=== PATIENT | female | born 1940 | race Caucasian/White ===

== ENCOUNTER 2016-11-17 08:09 | Emergency (ER) | payer OTHER ==
[2016-11-17] MEDS ORDERED: NS 500 ML IV ONE (08:47)
[2016-11-17] MEDS ORDERED: ACETAMINOPHEN 325 MG TAB ONE (08:50)
--- NOTE | 2016-11-17 09:19 | UCPHY ---
H & P Time Seen by Provider: 11/17/16 08:45 Patient Type: Established HPI/ROS: HPI Cough, congestion. 76-year-old female by private vehicle. This patient reports that she has had a cough which she describes as nonproductive and dry as well as nasal congestion productive of clear rhinorrhea for the last 2 weeks, feeling weak and tired today with continued cough and congestion. She had 2 episodes of post-tussive vomiting yesterday. Otherwise no nausea. No diarrhea. She has been running a fever. ROS: Constitutional: As above. Eyes: No discharge. No changes in vision. ENT: No sore throat. As above. Respiratory: As above. No shortness of breath. Cardiac: No chest pain, no palpitations. Gastrointestinal: No abdominal pain, as above, no diarrhea. Genitourinary: No hematuria. No dysuria or increased frequency with urination. Musculoskeletal: No back pain. No neck pain. No myalgias or arthralgias. Skin: No rashes. Neurological: No headache. No focal weakness or altered sensation. Past medical history: Past medical history includes hypertension. Also has home oxygen which she has been using for years for hypoxia. Primary care physician is Dr. Fabian. Social history: She lives with a roommate. Nonsmoker. Physical Exam: General Appearance: Alert, no distress. This patient is responding to questions appropriately and in full sentences. This patient appears well- hydrated and well-nourished. Eyes: Pupils equal and round no pallor or injection. No lid edema, erythema or injection. ENT, Mouth: Mucous membranes are moist. The pharyngeal tissues are unremarkable. No edema or swelling. No asymmetry suggestive of abscess. No erythema or exudates. No stridor on auscultation of her neck. Respiratory: There are no retractions, lungs are clear to auscultation anteriorly with good air movement bilaterally. Cardiovascular: Regular rate and rhythm. No murmur. Gastrointestinal: Abdomen is soft and nontender, no masses, bowel sounds normal. No focal tenderness at McBurney's point. No Jones sign. Neurological: Motor sensory function is grossly intact. Cranial nerves are normal. Gait is normal. Skin: Warm and dry, no rashes. Musculoskeletal: Neck is supple and nontender. Extremities are symmetrical. All joints range without pain or impingement. Psychiatric: No agitation. No depression. Database: Rapid influenza: Positive. EKG: Imaging: Chest x-ray PA and lateral; the cardiac mediastinal silhouette is unremarkable. No evidence of infiltrate or pneumothorax. Bronchitis, diffuse airway disease. No acute cardiopulmonary disease process noted. Interpreted by me. Procedures: Emergency department course: IV placed. She was placed on a teletypesetter monitor. EKG performed. She was given 1 g of oral Tylenol. She was started on IV normal saline with 500 cc to be given over the next 1-2 hours. She meets SIRS criteria based on fever and pulse of 92. Blood cultures, serum lactate and other appropriate blood work sent. 10:00 a.m., patient given oral Tamiflu for treatment of influenza. 10:40 a.m., patient sitting upright on the bed. Talking to her friend and roommate. Pulse oximetry on room air is 90 present. Vital signs reviewed and are otherwise unremarkable. She has oxygen at home and is comfortable using this. She feels comfortable going home and I feel she is safe for discharge with her friend. I do not feel she is septic based on repeat clinical evaluation as well as results of blood work. Return to emergency department precautions and follow-up were discussed in detail with her. She lives near the hospital and can easily return if needed. She will be prescribed Tamiflu as well as Vicodin for treatment of fever, myalgias and arthralgias. All of her questions were answered. She was discharged in good condition with her friend. Differential Diagnosis: The differential diagnosis on this patient includes but is not limited to influenza, bronchitis, pneumonia. This represents a partial list of diagnoses considered. These considerations are based on history, physical exam, past history, reassessment and diagnostic testing. Smoking Status: Never smoked Constitutional: Initial Vital Signs Temperature (C) 38.8 C H 11/17/16 08:29 Heart Rate 92 11/17/16 08:29 Respiratory Rate 20 11/17/16 08:29 Blood Pressure 157/80 H 11/17/16 08:29 O2 Sat (%) 88 L 11/17/16 08:29 O2 Delivery Mode Room Air O2 (L/minute) 3 Allergies/Adverse Reactions: amlodipine besylate [From Norvasc] Allergy (Severe, Verified 11/17/16 08:36) LOW HEART RATE latex [Latex] Allergy (Severe, Verified 11/17/16 08:36) SEVERE RASH adhesive tape [Adhesive Tape] Allergy (Intermediate, Verified 11/17/16 08:36) RASH/BLISTERS Sulfa (Sulfonamide Antibiotics) Allergy (Mild, Verified 11/17/16 08:36) Vomiting Home Medications: Medication Instructions Recorded Lisinopril [Zestril 40 mg (*)] 40 mg PO DAILY #30 tab 10/16/14 Coq10 11/17/16 Hydrochlorothiazide 11/17/16 Hydrocodone/APAP 5/325 [[place] 1 - 2 tab PO Q4-6PRN PRN #10 tab 11/17/16 5/325 (*)] Oseltamivir Phosphate [Tamiflu 75 75 mg PO BID #10 cap 11/17/16 mg (RX)] Medical Decision Making - Data Points Laboratory Results: Laboratory Results 11/17/16 09:08 11/17/16 09:08 11/17/16 09:08 WBC 9.34 10^3/uL (3.80-9.50) RBC 4.69 10^6/uL (4.18-5.33) Hgb 15.4 g/dL (12.6-16.3) Hct 45.2 % (38.0-47.0) MCV 96.4 fL (81.5-99.8) MCH 32.8 pg (27.9-34.1) MCHC 34.1 g/dL (32.4-36.7) RDW 13.3 % (11.5-15.2) Plt Count 272 10^3/uL (150-400) MPV 11.6 fL (8.7-11.7) Neut % (Auto) 82.4 H % (39.3-74.2) Lymph % (Auto) 9.3 L % (15.0-45.0) [place] % (Auto) 7.3 % (4.5-13.0) Eos % (Auto) 0.1 L % (0.6-7.6) Baso % (Auto) 0.6 % (0.3-1.7) Nucleat RBC Rel Count 0.0 % (0.0-0.2) Absolute Neuts (auto) 7.69 H 10^3/uL (1.70-6.50) Absolute Lymphs (auto) 0.87 L 10^3/uL (1.00-3.00) Absolute Monos (auto) 0.68 10^3/uL (0.30-0.80) Absolute Eos (auto) 0.01 L 10^3/uL (0.03-0.40) Absolute Basos (auto) 0.06 10^3/uL (0.02-0.10) Absolute Nucleated RBC 0.00 10^3/uL (0-0.01) Immature Gran % 0.3 % (0.0-1.1) Immature Gran # 0.03 10^3/uL (0.00-0.10) VBG Lactic Acid 1.3 mmol/L (0.7-2.1) Sodium 141 mEq/L (134-144) Potassium 3.6 mEq/L (3.5-5.2) Chloride 100 mEq/L (97-110) Carbon Dioxide 28 mEq/l (22-31) Anion Gap 13 mEq/L (8-16) BUN 18 mg/dL (7-23) Creatinine 0.9 mg/dL (0.6-1.0) Estimated GFR > 60 Glucose 106 H mg/dL (70-100) Calcium 9.0 mg/dL (8.5-10.4) Influenza Typ A,B (DFA) POSITIVE FOR FLU A H (NEGATIVE) Medications Given: Discontinued Medications Sodium Chloride (Ns) 500 mls @ 0 mls/hr IV ONCE ONE PRN Reason: Wide Open Stop: 11/17/16 08:48 Last Admin: 11/17/16 09:30 Dose: 500 mls Oseltamivir Phosphate (Tamiflu) 75 mg PO EDNOW ONE Stop: 11/17/16 09:56 Last Admin: 11/17/16 10:30 Dose: 75 mg Departure - Departure Disposition: Home, Routine, Self-Care Clinical Impression: Fever, Bronchitis, Influenza A Condition: Good Instructions: Influenza (ED) Additional Instructions: Read and follow provided instructions. Follow-up with your primary care physician tomorrow as discussed for re- evaluation. Return to the emergency department or urgent care for worsening symptoms, worsening cough, high fever, difficulty breathing or other serious concerns. Take medication as prescribed. [place]/Percocet dosin every 4-[address] for [address] Do not drive on this medication. Do not take Tylenol with this medication. Ibuprofen dosin mg every 6 hours with meals for the next 3 days only. Use home oxygen at 2-3 L , 24-7 by nasal cannula until symptoms resolve. Referrals: Martín Fabian [Primary Care Provider] - As per Instructions Prescriptions: Hydrocodone/APAP 5/325 [[place] 5/325 (*)] 1 - 2 tab PO Q4-6PRN PRN #10 tab PRN Reason: Pain, Moderate Oseltamivir Phosphate [Tamiflu 75 mg (RX)] 75 mg PO BID #10 cap - PQRS PQRS Measurement: 134: Depression screening and followup, PRIME MD-PHQ2 (12 years and older) Over the last 2 weeks, how often have you been bothered by any of the following problems? 1. Feeling down, depressed, or hopeless? 2. Little interest or pleasure in doing things? Answered no to both questions. 130: Documentation of medications. Reviewed all patient medications, doses, route and frequency. 226: Do you smoke? No. 47: 65 and older: Advanced care planning. Patient designates surrogate decision maker as family. 51: 18 years old and older with diagnosis of COPD, spirometry performance. NA 52: 18 years old and older with COPD and symptoms of COPD or FEV1<60% predicted prescribed a B Agonist. NA
[2016-11-17 09:24] LABS: % IMMATURE GRANULYOCYTES 0.3 % (0.0-1.1); ABSOLUTE IMMATURE GRANULOCYTES 0.03 10^3/uL (0.00-0.10); ADD DIFF? NO; ADD MORPH? NO; ADD SCAN? NO; ATYPICAL LYMPHOCYTE FLAG 0 (0-99); FRAGMENT RBC FLAG 0 (0-99); HEMATOCRIT 45.2 % (38.0-47.0); HEMOGLOBIN 15.4 g/dL (12.6-16.3); LEFT SHIFT FLG 0 (0-99); LIPEMIA HEMOLYSIS FLAG 90 (0-99); MEAN CELL HEMOGLOBIN 32.8 pg (27.9-34.1); MEAN CELL HEMOGLOBIN CONCENTR. 34.1 g/dL (32.4-36.7); MEAN CELL VOLUME 96.4 fL (81.5-99.8); MEAN PLATELET VOLUME 11.6 fL (8.7-11.7); PLATELET CLUMPS FLAG 0 (0-99); PLATELET COUNT 272 10^3/uL (150-400); RED BLOOD CELL COUNT 4.69 10^6/uL (4.18-5.33); RED CELL DISTRIBUTION WIDTH 13.3 % (11.5-15.2)
[2016-11-17 09:30] LABS: ANION GAP 13 mEq/L (8-16); CARBON DIOXIDE 28 mEq/l (22-31); CHLORIDE 100 mEq/L (97-110); CREATININE 0.9 mg/dL (0.6-1.0); GLOMERULAR FILTRATION RATE > 60; GLUCOSE 106 mg/dL (70-100); POTASSIUM 3.6 mEq/L (3.5-5.2); SODIUM 141 mEq/L (134-144)
[2016-11-17] MEDS ORDERED: OSELTAMIVIR PHOSPHATE 75 MG CAP PO ONE (09:55)
--- NOTE | 2016-11-17 10:01 | DX ---
Chest, PA and Lateral November 17, 2016 History: Dyspnea. Cough. Comparison: September 2014. Findings: Heart size is upper limits of normal and stable. Aorta is tortuous. There is mild peribronc hial wall thickening bilaterally. Mild emphysematous configuration to the chest. Mild degenerative ch horacio is seen in the thoracic spine and evidence of prior lumbar surgery. Impression: Mild bronchitis. Other chronic findings, as above.
[2016-11-17 10:30] VITALS: TEMP 100.4
[2016-11-17 11:16] VITALS: BP 146/90; PULSE 75; RESP 22; O2SAT 88
== END 2016-11-17 10:50 | disposition home or self-care (01) ==
LOC: CED 08:09
DX: J09.X2 Influenza due to identified novel influenza A virus with other respiratory manifestations (principal)
CPT/HCPCS: 71020; G0463; 80048-PO; 83605-PO; 85025-PO; 87400-PO; 93010-PO; 99215-PO

== ENCOUNTER 2016-11-19 13:06 | Inpatient (IN) | payer OTHER ==
[2016-11-19] MEDS ORDERED: NS 1,000 ML IV ONE (13:42)
[2016-11-19 13:51] LABS: % IMMATURE GRANULYOCYTES 0.2 % (0.0-1.1); ABSOLUTE IMMATURE GRANULOCYTES 0.02 10^3/uL (0.00-0.10); ADD DIFF? NO; ADD MORPH? NO; ADD SCAN? NO; ATYPICAL LYMPHOCYTE FLAG 30 (0-99); FRAGMENT RBC FLAG 0 (0-99); HEMATOCRIT 46.9 % (38.0-47.0); HEMOGLOBIN 15.8 g/dL (12.6-16.3); LEFT SHIFT FLG 0 (0-99); LIPEMIA HEMOLYSIS FLAG 80 (0-99); MEAN CELL HEMOGLOBIN 32.4 pg (27.9-34.1); MEAN CELL HEMOGLOBIN CONCENTR. 33.7 g/dL (32.4-36.7); MEAN CELL VOLUME 96.3 fL (81.5-99.8); MEAN PLATELET VOLUME 11.4 fL (8.7-11.7); PLATELET CLUMPS FLAG 0 (0-99); PLATELET COUNT 230 10^3/uL (150-400); RED BLOOD CELL COUNT 4.87 10^6/uL (4.18-5.33); RED CELL DISTRIBUTION WIDTH 13.3 % (11.5-15.2)
--- NOTE | 2016-11-19 13:57 | EDPHY ---
H & P Time Seen by Provider: 11/19/16 13:18 HPI/ROS: Chief complaint. Cough, fever HPI. 76-year-old female with 2 weeks of upper respiratory symptoms. She was diagnosed on November 17 with influenza with a positive rapid flu swab. She was begun on Tamiflu and now has had 3 days of Tamiflu. Despite this she has continued to run a fever, have nonproductive cough, generalized weakness and shortness of breath. Exposure to sick roommate. No chest discomfort but had some upper abdominal pain with coughing. No unusual leg pain or swelling. She has coughed to the point of vomiting. She also has coughed to the point of diarrhea. She is unable to take care of herself at home ROS Constitutional. Fever and weakness Eyes. no problems with vision ENT. no sore throat, no nasal drainage Cardiovascular. no chest pain Respiratory. Cough and shortness of breath Abdominal. Upper abdominal pain with . no problems urinating MS. no calf pain/swelling, no neck/back pain, no joint pain Skin. no rash Lymph. no swollen glands Neuro. 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 She is also unsure whether she has had pneumococcal vaccine. Hypertension, appendectomy, tonsillectomy, spinal fusion, hysterectomy, breast cancer, C difficile, cholecystectomy Social History: Single, nonsmoker, no alcohol Smoking Status: Never smoked Physical Exam: General Appearance: Alert pleasant well-developed female moderate distress vital signs show temp 38degrees point. Blood pressure 143/97. Pulse ox on room air 91% Eyes: Pupils equal and round no pallor or injection. ENT, Mouth: Mucous membranes are moist. Respiratory: No retractions but rales in the left lower lung base Cardiovascular: Regular rate and rhythm. Gastrointestinal: Abdomen is soft and nontender, no masses, bowel sounds normal. Neurological: Awake and alert, sensory and motor exams grossly normal. Skin: Warm and dry, no rashes. Musculoskeletal: Neck is supple nontender. Extremities symmetrical, full range of motion. Psychiatric: Patient is oriented X 3, there is no agitation. Constitutional: Initial Vital Signs Temperature (C) 38.1 C 11/19/16 13:14 Heart Rate 79 11/19/16 13:14 Respiratory Rate 18 11/19/16 13:14 Blood Pressure 143/97 H 11/19/16 13:14 O2 Sat (%) 91 L 11/19/16 13:14 O2 Delivery Mode Nasal Cannula O2 (L/minute) 2 Allergies/Adverse Reactions: amlodipine besylate [From Norvasc] Allergy (Severe, Verified 11/19/16 13:13) LOW HEART RATE latex [Latex] Allergy (Severe, Verified 11/19/16 13:13) SEVERE RASH adhesive tape [Adhesive Tape] Allergy (Intermediate, Verified 11/19/16 13:13) RASH/BLISTERS Sulfa (Sulfonamide Antibiotics) Allergy (Mild, Verified 11/19/16 13:13) Vomiting Home Medications: Medication Instructions Recorded Lisinopril [Zestril 40 mg (*)] 40 mg PO DAILY #30 tab 10/16/14 Coq10 11/17/16 Hydrochlorothiazide 11/17/16 Hydrocodone/APAP 5/325 [[place] 1 - 2 tab PO Q4-6PRN PRN #10 tab 11/17/16 5/325 (*)] Oseltamivir Phosphate [Tamiflu 75 75 mg PO BID #10 cap 11/17/16 mg (RX)] Medical Decision Making - Diagnostics Imaging: Chest x-ray interpreted by me is consistent with bronchitis. No evidence for pneumonia Procedures: IV normal saline. Blood cultures, lactate. Septic workup ED Course/Re-evaluation: Re-evaluation 14 40 patient is stable. The patient and I discussed lab and imaging study results. We discussed treatment plan including need for admission. The patient expresses understanding and agreement I consulted and discussed the case with Dr. Gamble, hospitalist, who agrees to the admission Differential Diagnosis: The patient has the flu. She is not doing well despite being on Tamiflu. I considered pneumonia which we do not see a finding on her chest x-ray. She lives by herself and is having a hard time taking care of herself. Plan is admission - Data Points Laboratory Results: Laboratory Results 11/19/16 13:26 11/19/16 13:26 11/19/16 11/19/16 13:50 13:26 WBC 9.92 H 10^3/uL (3.80-9.50) RBC 4.87 10^6/uL (4.18-5.33) Hgb 15.8 g/dL (12.6-16.3) Hct 46.9 % (38.0-47.0) MCV 96.3 fL (81.5-99.8) MCH 32.4 pg (27.9-34.1) MCHC 33.7 g/dL (32.4-36.7) RDW 13.3 % (11.5-15.2) Plt Count 230 10^3/uL (150-400) MPV 11.4 fL (8.7-11.7) Neut % (Auto) 67.9 % (39.3-74.2) Lymph % (Auto) 23.2 % (15.0-45.0) [place] % (Auto) 8.2 % (4.5-13.0) Eos % (Auto) 0.1 L % (0.6-7.6) Baso % (Auto) 0.4 % (0.3-1.7) Nucleat RBC Rel Count 0.0 % (0.0-0.2) Absolute Neuts (auto) 6.74 H 10^3/uL (1.70-6.50) Absolute Lymphs (auto) 2.30 10^3/uL (1.00-3.00) Absolute Monos (auto) 0.81 H 10^3/uL (0.30-0.80) Absolute Eos (auto) 0.01 L 10^3/uL (0.03-0.40) Absolute Basos (auto) 0.04 10^3/uL (0.02-0.10) Absolute Nucleated RBC 0.00 10^3/uL (0-0.01) Immature Gran % 0.2 % (0.0-1.1) Immature Gran # 0.02 10^3/uL (0.00-0.10) PT 12.7 SEC (12.0-15.0) INR 0.96 (0.83-1.16) APTT 28.1 SEC (23.0-38.0) VBG Lactic Acid 1.2 mmol/L (0.7-2.1) Sodium 142 mEq/L (134-144) Potassium 3.6 mEq/L (3.5-5.2) Chloride 104 mEq/L (97-110) Carbon Dioxide 27 mEq/l (22-31) Anion Gap 11 mEq/L (8-16) BUN 18 mg/dL (7-23) Creatinine 0.8 mg/dL (0.6-1.0) Estimated GFR > 60 Glucose 100 mg/dL (70-100) Calcium 8.8 mg/dL (8.5-10.4) Total Bilirubin 0.5 mg/dL (0.1-1.4) Medications Given: Discontinued Medications Acetaminophen (Tylenol) 1,000 mg PO EDNOW ONE Stop: 11/19/16 13:59 Last Admin: 11/19/16 14:09 Dose: 1,000 mg Sodium Chloride (Ns) 1,000 mls @ 0 mls/hr IV ONCE ONE PRN Reason: Wide Open Stop: 11/19/16 13:43 Last Admin: 11/19/16 14:09 Dose: 1,000 mls Departure - Departure Disposition: [facility] Inpatient Acute Clinical Impression: Influenza Condition: Fair Referrals: Martín Fabian [Primary Care Provider] - As per Instructions
[2016-11-19] MEDS ORDERED: ACETAMINOPHEN 500 MG TAB PO ONE (13:58)
--- NOTE | 2016-11-19 14:11 | DX ---
Chest 2 view, PA and lateral. History: Cough. Meet sepsis criteria. Comparison: November 17, 2016. Findings: Heart size is within normal limits. Pulmonary vascularity is normal. The lungs are clear of acute consolidation. Mild peribronchial cuffing is seen bilaterally. No evidence for pleural effusio n. Mild degenerative changes seen in the thoracic spine. Postsurgical changes lumbar spine.. Impression: Mild bronchitis. No other findings for acute cardiopulmonary abnormality.
[2016-11-19 14:23] LABS: ANION GAP 11 mEq/L (8-16); BILIRUBIN,TOTAL 0.5 mg/dL (0.1-1.4); CALCIUM 8.8 mg/dL (8.5-10.4); CARBON DIOXIDE 27 mEq/l (22-31); CHLORIDE 104 mEq/L (97-110); CREATININE 0.8 mg/dL (0.6-1.0); GLOMERULAR FILTRATION RATE > 60; GLUCOSE 100 mg/dL (70-100); POTASSIUM 3.6 mEq/L (3.5-5.2); SODIUM 142 mEq/L (134-144)
[2016-11-19 14:31] LABS: INR 0.96 (0.83-1.16); PROTIME(PATIENT) 12.7 SEC (12.0-15.0)
[2016-11-19 14:32] LABS: APTT 28.1 SEC (23.0-38.0)
[2016-11-19] MEDS ORDERED: IPRATROPIUM/ALBUTEROL 3 ML DEYVIAL IH PRN (15:12)
[2016-11-19] MEDS ORDERED: ONDANSETRON 4 MG/2 ML VIAL IVP PRN (15:12)
[2016-11-19] MEDS ORDERED: KETOROLAC 30 MG/1 ML SDV IVP PRN (15:14)
[2016-11-19] MEDS ORDERED: NS 1,000 ML IV SCH (15:15)
--- NOTE | 2016-11-19 16:02 | GHP ---
[f rep st] HISTORY AND PHYSICAL DATE OF ADMISSION: 11/19/2016 CHIEF COMPLAINT: Weakness. HISTORY OF PRESENT ILLNESS: The patient is a 76-year-old female who was seen in urgent care 2 days a go and diagnosed with influenza. She was started on Tamiflu. Despite this, she has continued to dec line and gotten progressively more weak to the point where she can no longer care for herself at home . She has had upper respiratory tract infectious symptoms for the last 2 weeks. However, couple day s ago it felt like it got much deeper into her chest. She has a severe dry cough and she was up all night coughing. This is nonproductive. She had fever at home to 100.3. She has had progressive wea kness and she can now no longer even get herself out of a chair. She can't perform any ADLs. She li ves with some roommates. She denies any shortness of breath. She does get some chest pain only with coughing. This is otherwise nonpleuritic. PAST MEDICAL HISTORY: 1. Hypertension. 2. Breast cancer, status post bilateral mastectomy. 3. Fallopian tube cancer, status post hysterectomy. 4. Atrial fibrillation. Refusing anticoagulation. 5. Nonobstructive coronary artery disease. PAST SURGICAL HISTORY: Appendectomy, cholecystectomy, splenectomy, basal cell excision. MEDICATIONS: Please see computer record for full detailed list. ALLERGIES: Amlodipine, sulfa, latex and adhesives. SOCIAL HISTORY: No smoking. No alcohol. She lives with 2 roommates. She does have a son who lives in [place]. REVIEW OF SYSTEMS: Complete review of systems obtained, review of systems is negative on constitutio nal, HEENT, GI, pulmonary, cardiovascular, , hematology, skin, musculoskeletal, endocrine, psych, e xcept for positives or negatives as in HPI. FAMILY HISTORY: Reviewed, noncontributory to presenting complaint. PHYSICAL EXAMINATION: GENERAL: Well-developed, well-nourished female, in no acute distress. VITAL SIGNS: Temperature is 38.1, pulse 73, blood pressure 142/74, saturating 91% on room air. EYES: Nor mal conjunctivae, pupils react to light. ENT: Normal ears, nose. Hearing intact. Normal lips and t eeth. Oropharynx moist. NECK: Trachea midline. No thyromegaly. CHEST: Normal effort. LUNGS: Eric ar to auscultation bilaterally. I do not hear any wheezing. CARDIOVASCULAR: Regular rhythm. No murmur. No lower extremity edema. ABDOMEN: Soft, nontender. No hepatosplenomegaly. SKIN: Warm, dry, intact. No rash. MUSCULOSKELETAL: No cyanosis or clubbing. Strength 5/5 upper and lower extremities. NEUROLOGIC: Cranial nerves intact. Normal sensation li ght touch. PSYCHIATRIC: Alert and oriented x3. Normal mood. Normal affect. Normal judgment. Norm al memory. LABORATORY DATA: White count 9.92, hematocrit 46.9, platelets 230. Sodium 142, potassium 3.6, chlor [place] 104, bicarb 27, BUN 18, creatinine 0.8, glucose 100. INR 0.96, lactate 1.2. Chest x-ray is viewed by me. My personal interpretation is: No evidence of pneumonia. Medical records reviewed. I reviewed urgent care visit from 2 days ago at which time she presented w ith cough and had confirmed influenza positive nasal swab. Tamiflu was initiated. At that point, anibal yanez was caring for herself and felt to be safe to return back home with roommates. ASSESSMENT/PLAN: 1. Influenza A. Will continue Tamiflu to complete a 5 day course. We will hold off on any antibiot ics at this time because I do not see good evidence of super infection, but she will be monitored nona shanique. 2. Acute weakness. She is currently unable to ambulate or care for herself in an independent setting . Will get PT and OT consultation. 3. Hypertension. Will clarify home medications via medicine reconciliation and continue. 4. Atrial fibrillation. It is well documented that she has refused anticoagulation in the past. We will check an a.m. EKG. CODE STATUS: She requests DNR. ADMISSION STATUS: Will admit to inpatient as with her profound weakness. I anticipate greater than 2 midnights will be needed to get her to a degree of independence to return to her previous living si tu. DVT PROPHYLAXIS: She is high risk. Will place on subcu Lovenox. /[id number]/MODL
[2016-11-19] MEDS ORDERED: HYDROCODONE/APAP 5/325 TAB PO PRN (16:23)
--- NOTE | 2016-11-19 16:25 | CPEKG ---
Heart Rate: 60 RR Interval: 1000 P-R Interval: 160 QRSD Interval: 108 QT Interval: 476 QTC Interval: 476 P [place]: 45 QRS [place]: -25 T Wave [place]: 21 EKG Severity - ABNORMAL ECG - EKG Impression: SINUS RHYTHM EKG Impression: PROBABLE LEFT VENTRICULAR HYPERTROPHY EKG Impression: Lateral t wave inversions Electronically Signed By: Pj Urban 22-Nov-2016 22:19:07
[2016-11-19] MEDS: OSELTAMIVIR PHOSPHATE 75 MG CAP PO SCH (20:35)
[2016-11-20 05:13] LABS: % IMMATURE GRANULYOCYTES 0.3 % (0.0-1.1); ABSOLUTE IMMATURE GRANULOCYTES 0.03 10^3/uL (0.00-0.10); ADD DIFF? NO; ADD MORPH? NO; ADD SCAN? NO; ATYPICAL LYMPHOCYTE FLAG 20 (0-99); FRAGMENT RBC FLAG 0 (0-99); HEMATOCRIT 43.2 % (38.0-47.0); HEMOGLOBIN 14.6 g/dL (12.6-16.3); LEFT SHIFT FLG 0 (0-99); LIPEMIA HEMOLYSIS FLAG 90 (0-99); MEAN CELL HEMOGLOBIN 33.3 pg (27.9-34.1); MEAN CELL HEMOGLOBIN CONCENTR. 33.8 g/dL (32.4-36.7); MEAN CELL VOLUME 98.6 fL (81.5-99.8); MEAN PLATELET VOLUME 11.6 fL (8.7-11.7); PLATELET CLUMPS FLAG 10 (0-99); PLATELET COUNT 196 10^3/uL (150-400); RED BLOOD CELL COUNT 4.38 10^6/uL (4.18-5.33); RED CELL DISTRIBUTION WIDTH 13.3 % (11.5-15.2)
[2016-11-20 05:16] LABS: ANION GAP 7 mEq/L (8-16); CARBON DIOXIDE 26 mEq/l (22-31); CHLORIDE 108 mEq/L (97-110); CREATININE 0.6 mg/dL (0.6-1.0); GLOMERULAR FILTRATION RATE > 60; GLUCOSE 94 mg/dL (70-100); POTASSIUM 3.6 mEq/L (3.5-5.2); SODIUM 141 mEq/L (134-144)
[2016-11-20] MEDS: LISINOPRIL 40 MG TAB PO SCH (07:33)
[2016-11-20] MEDS: ACETAMINOPHEN 325 MG TAB PO PRN ×2 (07:34→16:14)
[2016-11-20] MEDS: HYDROCHLOROTHIAZIDE 25 MG TAB PO SCH (07:34)
[2016-11-20] MEDS: OSELTAMIVIR PHOSPHATE 75 MG CAP PO SCH ×2 (07:34→20:17)
[2016-11-20 07:44] VITALS: RESP 16
--- NOTE | 2016-11-20 09:23 | CPEKG ---
Heart Rate: 58 RR Interval: 1034 P-R Interval: 160 QRSD Interval: 110 QT Interval: 452 QTC Interval: 445 P [place]: 39 QRS [place]: -21 T Wave [place]: 41 EKG Severity - ABNORMAL ECG - EKG Impression: SINUS RHYTHM EKG Impression: ATRIAL PREMATURE COMPLEX EKG Impression: NONSPECIFIC INTRAVENTRICULAR CONDUCTION DELAY EKG Impression: PROBABLE LEFT VENTRICULAR HYPERTROPHY EKG Impression: NEW ANTERIOR T WAVE CHANGES SINCE 19-NOV-2016 Electronically Signed By: Radha Navarro 20-Nov-2016 17:11:39
[2016-11-20] MEDS: ENOXAPARIN 40 MG/0.4 ML SYR SC SCH (12:17)
--- NOTE | 2016-11-20 13:16 | HOSPPROG ---
Hospitalist Progress Note Assessment/Plan: 76-year-old female presents emergency room with complaints of shortness of breath and weakness. This is my 1st encounter with the patient, chart reviewed. # influenza A Continue supportive management Tamiflu No antibiotics this time as no signs of bacterial infection Initiate Mucinex # weakness Secondary to acute infectious process PT OT eval # hypertension Mild continue to follow # history of atrial fibrillation Patient continues to refuse anticoagulation # disposition Anticipate discharge in the next 1-2 days assuming symptoms improved Await further evaluation and intervention needs Subjective: Feeling very ill today. Still feeling weak and short of breath. Anxious to leave the hospital in the next day or 2. Objective: Vital Signs Temp Pulse Resp BP Pulse Ox 37.7 C 67 16 140/73 H 96 11/20/16 11:57 11/20/16 11:57 11/20/16 11:57 11/20/16 11:57 11/20/16 11:57 Laboratory Results 11/20/16 04:35 11/20/16 04:35 11/19/16 11/20/16 11/21/16 05:59 05:59 05:59 Intake Total 2300 225 Output Total 500 Balance 1800 225 PT 12.7 SEC (12.0-15.0) 11/19/16 13:26 INR 0.96 (0.83-1.16) 11/19/16 13:26 - Physical Exam Constitutional: not in pain, chronically ill appearing, uncomfortable Eyes: PERRL, anicteric sclera Ears, Nose, Mouth, Throat: moist mucous membranes, hearing normal, ears appear normal Cardiovascular: No JVD, No tachycardia, No edema Respiratory: no respiratory distress, no rales or rhonchi, reduced air movement Gastrointestinal: No tenderness, No ascites, No guarding Skin: warm, normal color, No erythema Musculoskeletal: no joint effusions, generalized weakness, No muscular tenderness Neurologic: AAOx3 Psychiatric: interacting appropriately, not anxious, not encephalopathic ICD10 Worksheet Patient Problems: Problems Problem Status Diagnosed Abdominal pain Acute Hypertensive urgency Acute Influenza Acute
[2016-11-21 07:36] VITALS: BP 169/83; PULSE 67; TEMP 97.4; O2SAT 93
[2016-11-21] MEDS: OSELTAMIVIR PHOSPHATE 75 MG CAP PO SCH (09:46)
[2016-11-21] MEDS: HYDROCHLOROTHIAZIDE 25 MG TAB PO SCH (09:46)
[2016-11-21] MEDS: LISINOPRIL 40 MG TAB PO SCH (09:48)
[2016-11-21] MEDS: ENOXAPARIN 40 MG/0.4 ML SYR SC SCH (10:10)
--- NOTE | 2016-11-21 10:14 | GDS ---
[f rep st] DISCHARGE SUMMARY DISCHARGE DIAGNOSES: 1. Influenza A. 2. Weakness. 3. History of hypertension. 4. History of paroxysmal atrial fibrillation. 5. History of nonobstructive coronary artery disease. 6. History of breast cancer. 7. History of fallopian tube cancer. PROCEDURES: 1. 11/19/2016 chest x-ray, which shows mild bronchitis without evidence of pneumonia. 2. 11/20/2016: 12-lead EKG shows sinus rhythm with LVH by voltage. BRIEF HISTORY: Please see dictated H and P for complete details. In brief, the patient is a 76-year -old female with a history of PAF with previous refusal of anticoagulation, history of nonobstructive CAD, who was admitted due to weakness. She was having difficulty caring for herself in her independ ent living situation. She was admitted for supportive measures. She was febrile on presentation but has been afebrile over the past 24 hours. She continues to note coughing. She will be discharged h ome to complete her course of Tamiflu. She may take p.r.n. Robitussin and albuterol inhaler. HOSPITAL COURSE: 1. Weakness. She has been seen by PT and has been found to be independent in all her ADLs. She may be discharged to home with no home care needs identified. 2. Influenza A. She has been placed on Tamiflu. She may follow up with Dr. Fabian next week. 3. Cough. She was advised to use Robitussin as directed. She may also use an inhaler as needed. 4. Paroxysmal AFib. She has no evidence of atrial fibrillation on telemetry. She may discuss with PCP at least initiating aspirin therapy. PHYSICAL EXAM ON THE DAY OF DISCHARGE: VITAL SIGNS: Blood pressure 148/88, heart rate 64, respirati ons 16, O2 saturation 95%, satting at 90% on room air, temp of 97.4 degrees Fahrenheit. GENERAL: Josue yanez is a pleasant female in no apparent distress. EYES: PERRL. HEART: Regular rate and rhythm. JOSY GS: Mild rhonchi diffusely. LABORATORY DATA: CBC with WBC 11.3, hemoglobin 14.6, hematocrit 43.2, platelets 196. BMP with sodiu m 141, potassium 3.6, chloride 108, CO2 26, BUN 13, creatinine 0.6, glucose 94. RESULTS PENDING: None. DIET: Per previous. ACTIVITY: As tolerated. DISCHARGE MEDICATIONS: Please see medication reconciliation for complete details. Her home lisinopr il, hydrochlorothiazide, and [place] are continued. She is to finish her Tamiflu course that she has a lready been given. She may take Tylenol, albuterol, and Robitussin as needed. FOLLOWUP INSTRUCTIONS: Please set up a followup appointment with Dr. Fabian in the outpatient [facility] /[id number]/SIERRAL
== END 2016-11-21 10:18 | disposition home or self-care (01) | DRG 195 ==
LOC: OBSVTOIN 15:20 → F3N 16:27
PROVIDERS: ADMIT Internal Medicine; ATTEND Internal Medicine
DX: J10.1 Influenza due to other identified influenza virus with other respiratory manifestations (principal); J20.9 Acute bronchitis, unspecified; R53.1 Weakness; I48.0 Paroxysmal atrial fibrillation; I10 Essential (primary) hypertension; I25.10 Atherosclerotic heart disease of native coronary artery without angina pectoris; Z85.3 Personal history of malignant neoplasm of breast; Z85.44 Personal history of malignant neoplasm of other female genital organs
CPT/HCPCS: 97161-GP; G8978-GP-CI; G8979-GP-CI; J1650

== ENCOUNTER → 2017-04-06 | Outpatient (CLI) | payer OTHER ==
[~2017-04-06] MED LIST: IOPAMIDOL (ISOVUE-300) 100 ML BTL ONE
== END ==
LOC: FIMAGING 09:16
PROVIDERS: ATTEND Surgery
DX: C50.412 Malignant neoplasm of upper-outer quadrant of left female breast (principal)
CPT/HCPCS: 71260; Q9967

== ENCOUNTER → 2017-08-19 | Outpatient (CLI) | payer OTHER | LOC: CIMAGING 11:16 | DX: Z09 Encounter for follow-up examination after completed treatment for conditions other than malignant neoplasm (principal); Z98.1 Arthrodesis status; S33.130A Subluxation of L3/L4 lumbar vertebra, initial encounter | CPT/HCPCS: 72100-PO ==

== ENCOUNTER → 2017-10-09 | Outpatient (CLI) | payer OTHER | LOC: FIMAGING 10:01 | PROVIDERS: ATTEND Family Medicine | DX: H91.91 Unspecified hearing loss, right ear (principal); R20.0 Anesthesia of skin; Z85.3 Personal history of malignant neoplasm of breast ==

== ENCOUNTER → 2017-11-26 | Outpatient (CLI) | payer OTHER | LOC: FIMAGING 13:59 | PROVIDERS: ATTEND Family Medicine | DX: R07.81 Pleurodynia (principal) ==

== ENCOUNTER → 2018-03-16 | Outpatient (CLI) | payer OTHER ==
[~2018-03-16] MED LIST changes: +GADOBUTROL 10 ML VIAL IVP ONE; -IOPAMIDOL (ISOVUE-300) 100 ML BTL ONE
== END ==
LOC: FIMAGING 09:57
PROVIDERS: ATTEND Physical Medicine & Rehabilitation
DX: M48.061 Spinal stenosis, lumbar region without neurogenic claudication (principal); M51.36 Other intervertebral disc degeneration, lumbar region; M71.38 Other bursal cyst, other site; N28.1 Cyst of kidney, acquired
CPT/HCPCS: 72158; A9585

== ENCOUNTER 2018-03-26 07:30 | Emergency (ER) | payer OTHER ==
--- NOTE | 2018-03-26 07:59 | CPEKG ---
Heart Rate: 73 RR Interval: 822 P-R Interval: 144 QRSD Interval: 108 QT Interval: 420 QTC Interval: 463 P [place]: 25 QRS [place]: -39 T Wave [place]: 61 EKG Severity - ABNORMAL ECG - EKG Impression: SINUS RHYTHM EKG Impression: ATRIAL PREMATURE COMPLEX EKG Impression: LEFT VENTRICULAR HYPERTROPHY EKG Impression: ABNORMAL T, CONSIDER ISCHEMIA, ANT-LAT LEADS Electronically Signed By: Janice Restrepo 26-Mar-2018 11:05:46
--- NOTE | 2018-03-26 08:07 | EDPHY ---
H & P Stated Complaint: syncopal event last night at 6pm/had blurry vision post previous stroke/is Time Seen by Provider: 03/26/18 07:52 HPI/ROS: CHIEF COMPLAINT: Headache after fall Limitations: Challenging historian HISTORY OF PRESENT ILLNESS: 77-year-old female presents with a headache. Yesterday evening, she fell backwards over an ottoman and struck her head on the floor. She does not know why she fell, but did not lose consciousness and recalls hitting her head on the floor. She has had a mild headache since the fall and last night she had trouble sleeping because of a pulsating sensation in her forehead. She was concerned that she might be having a stroke. Headache is 2/10. She also complains back pain, but this is not much different from her usual pain. REVIEW OF SYSTEMS: complete 10 point ROS negative except at noted in the HPI - Personal History Current Tetanus Diphtheria and Acellular Pertussis (TDAP): Yes Tetanus Vaccine Date: 2006 - Medical/Surgical History Hx Asthma: No Hx Chronic Respiratory Disease: No Hx Diabetes: No Hx Cardiac Disease: Yes Hx Renal Disease: No Hx Cirrhosis: No Hx Alcoholism: No Hx HIV/AIDS: No Hx Splenectomy or Spleen Trauma: Yes Other PMH: PCP Caren. Flu Vacc NONE. extensive surgeries /cancer\/cva. HTN/ AFIB. SPINAL FUSION - Social History Smoking Status: Never smoked - Physical Exam Exam: General Appearance: Alert, pleasant Head: Normal inspection, no tenderness or swelling Eyes: Pupils equal and round, no conjunctival pallor or injection ENT, Mouth: Mucous membranes moist Neck: Normal inspection, no midline tenderness, range of motion without pain Respiratory: Lungs are clear to auscultation Cardiovascular: Regular rate and rhythm Gastrointestinal: Abdomen is soft and nontender Back: No midline tenderness Neurological: Alert, oriented x3, cranial nerves II through XII intact, motor 5 /5, sensory intact to light touch Skin: Warm and dry Extremities: Normal inspection Psychiatric: Mood and affect normal Constitutional: Initial Vital Signs Temperature (C) 36.7 C 03/26/18 07:32 Heart Rate 82 03/26/18 07:32 Respiratory Rate 18 03/26/18 07:32 Blood Pressure 140/91 H 03/26/18 07:32 O2 Sat (%) 94 03/26/18 07:32 O2 Delivery Mode Room Air O2 (L/minute) 2 Allergies/Adverse Reactions: amlodipine besylate [From Norvasc] Allergy (Severe, Verified 03/26/18 07:31) LOW HEART RATE latex [Latex] Allergy (Severe, Verified 03/26/18 07:31) SEVERE RASH adhesive tape [Adhesive Tape] Allergy (Intermediate, Verified 03/26/18 07:31) RASH/BLISTERS Sulfa (Sulfonamide Antibiotics) Allergy (Mild, Verified 03/26/18 07:31) Vomiting Home Medications: Medication Instructions Recorded Lisinopril [Zestril 40 mg (*)] 40 mg PO DAILY #30 tab 10/16/14 Hydrochlorothiazide [HCTZ (*)] 25 mg PO DAILY 11/17/16 Acetaminophen [Tylenol 325mg (*)] 650 mg PO Q4 PRN #0 tab 11/21/16 Albuterol 5 mg/ml INH [Proventil] 1 - 2 puffs IH QID PRN #0 btl 11/21/16 Medical Decision Making - Diagnostics EKG Interpretation: EKG interpreted by me reveals normal sinus rhythm, rate 73, LVH, T-wave inversions in the anterolateral leads. Similar to prior EKG's Imaging Results: Imaging Impressions Head CT 03/26/18 08:03 Impression: 1. No acute intracranial findings. 2. Diffuse cerebral atrophy with periventricular and subcortical low attenuation consistent with chronic microvascular ischemic gliosis. 3. Probable sinusitis. Findings discussed with Janice Restrepo on 03/26/2018 at 8:30 a.m. ED Course/Re-evaluation: This pt presents after a fall yesterday. Unclear if she had a syncopal episode. Neurologic exam is unremarkable and I do not suspect a stroke. stat EKG reveals no evidence dysrhythmia. Given persistent headache after a fall, CT scan of the brain ordered and reveals no evidence of intracranial hemorrhage. No evidence of other injuries on exam. Laboratory studies are unremarkable, including troponin. I feel that she is safe and stable for discharge home. Follow up with PCP. Differential Diagnosis: Differential diagnosis includes though is not limited to cardiac dysrhythmia, CVA, TIA, GI bleed, sepsis, hypoglycemia. - Data Points Laboratory Results: Laboratory Results 03/26/18 08:30 03/26/18 08:30 03/26/18 03/26/18 03/26/18 08:32 08:30 08:30 WBC 11.68 10^3/uL H 10^3/uL (3.80-9.50) RBC 4.59 10^6/uL 10^6/uL (4.18-5.33) Hgb 15.0 g/dL g/dL (12.6-16.3) Hct 45.2 % % (38.0-47.0) MCV 98.5 fL fL (81.5-99.8) MCH 32.7 pg pg (27.9-34.1) MCHC 33.2 g/dL g/dL (32.4-36.7) RDW 13.9 % % (11.5-15.2) Plt Count 276 10^3/uL 10^3/uL (150-400) MPV 11.9 fL H fL (8.7-11.7) Neut % (Auto) 63.6 % % (39.3-74.2) Lymph % (Auto) 22.2 % % (15.0-45.0) Ponce % (Auto) 8.3 % % (4.5-13.0) Eos % (Auto) 4.8 % % (0.6-7.6) Baso % (Auto) 0.8 % % (0.3-1.7) Nucleat RBC Rel Count 0.0 % % (0.0-0.2) Absolute Neuts (auto) 7.44 10^3/uL H 10^3/uL (1.70-6.50) Absolute Lymphs (auto) 2.59 10^3/uL 10^3/uL (1.00-3.00) Absolute Monos (auto) 0.97 10^3/uL H 10^3/uL (0.30-0.80) Absolute Eos (auto) 0.56 10^3/uL H 10^3/uL (0.03-0.40) Absolute Basos (auto) 0.09 10^3/uL 10^3/uL (0.02-0.10) Absolute Nucleated RBC 0.00 10^3/uL 10^3/uL (0-0.01) Immature Gran % 0.3 % % (0.0-1.1) Immature Gran # 0.03 10^3/uL 10^3/uL (0.00-0.10) Sodium 143 mEq/L mEq/L (135-145) Potassium 3.9 mEq/L mEq/L (3.3-5.0) Chloride 105 mEq/L mEq/L (97-110) Carbon Dioxide 27 mEq/l mEq/l (22-31) Anion Gap 11 mEq/L mEq/L (8-16) BUN 18 mg/dL mg/dL (7-23) Creatinine 0.8 mg/dL mg/dL (0.6-1.0) Estimated GFR > 60 Glucose 87 mg/dL mg/dL (70-100) Calcium 8.7 mg/dL mg/dL (8.5-10.4) POC Troponin I 0.01 ng/mL ng/mL (0.00-0.08) Point of Care Test Results: Chemistry 03/26/18 08:32 POC Troponin I 0.01 ng/mL ng/mL (0.00-0.08) Departure - Departure Disposition: Home, Routine, Self-Care Clinical Impression: Headache Qualifiers: Headache type: unspecified Headache chronicity pattern: acute headache Intractability: not intractable Qualified Code(s): R51 - Headache Condition: Good Instructions: Syncope (ED), Acute Headache (ED) Referrals: Martín Fabian [Primary Care Provider] - As per Instructions
[2018-03-26 09:00] LABS: PLATELET COUNT 276 10^3/uL (150-400)
[2018-03-26 09:37] VITALS: BP 144/70
== END 2018-03-26 09:47 | disposition home or self-care (01) ==
DX: S09.90XA Unspecified injury of head, initial encounter (principal); I10 Essential (primary) hypertension; Z91.040 Latex allergy status; W18.09XA Striking against other object with subsequent fall, initial encounter
CPT/HCPCS: 84484-PO

== ENCOUNTER 2018-10-27 09:12 | Day surgery (SDC) | payer OTHER ==
[2018-10-27] MEDS ORDERED: BUPIVACAINE/EPI 0.5% 30 ML SDV ONE (09:29)
[2018-10-27] MEDS ORDERED: BACITRACIN 50,000 UNITS/10 ML SYR IRR ONE (09:29)
[2018-10-27] MEDS ORDERED: VANCOMYCIN 1 GM VIAL ONE (09:29)
[2018-10-27] MEDS ORDERED: SURGIFLO MATRIX KIT WITH THROMBIN 8 ML TP ONE (09:29)
[2018-10-27] MEDS ORDERED: LIDOCAINE 1% 2 ML INJ ID PRN (09:45)
[2018-10-27] MEDS ORDERED: LR 1,000 ML IV ONE (09:45)
--- NOTE | 2018-10-27 09:53 | PDHPUP ---
History & Physical Update H&P update statement: This history and physical update is based on an assessment of the patient which was completed after admission or registration (within 24 hours), but prior to the surgery/procedure. H&P update: H&P reviewed & patient examined, no change in patient's condition since H&P completed
[2018-10-27] MEDS ORDERED: ceFAZolin 2 GM/DEXTROSE 100 ML IV ONE (09:55)
[2018-10-27] MEDS ORDERED: ACETAMINOPHEN 500 MG TAB PO ONE (09:55)
[2018-10-27] MEDS ORDERED: TRANEXAMIC ACID 1,000 MG in NS 100 ML IV ONE (09:55)
[2018-10-27] MEDS ORDERED: GABAPENTIN 300 MG CAP PO ONE (09:55)
[2018-10-27] MEDS ORDERED: MIDAZOLAM 2 MG/2 ML VIAL ONE (10:14)
[2018-10-27] MEDS ORDERED: MIDAZOLAM 2 MG/2 ML VIAL IVP ONE (10:14)
[2018-10-27] MEDS ORDERED: REMIFENTANIL HCL 1 MG VIAL ONE (10:21)
[2018-10-27] MEDS ORDERED: PROPOFOL/EMULSION 500 MG/50 ML BOTTLE IV ONE (10:21)
[2018-10-27] MEDS ORDERED: fentaNYL 100 MCG/2 ML INJ ONE ×3 (10:21→13:06)
[2018-10-27] MEDS ORDERED: PROPOFOL 200 MG/20 ML VIAL ONE (10:21)
--- NOTE | 2018-10-27 10:51 | PDANEPAE ---
ANE History of Present Illness Chronic back pain ANE Past Medical History - Cardiovascular History Hx Hypertension: Yes Hx Arrhythmias: Yes Hx Chest Pain: No Hx Coronary Artery / Peripheral Vascular Disease: Yes Hx CHF / Valvular Disease: No Hx Palpitations: No Cardiovascular History Comment: htn. cad. hx of afib. mitral regurgitation. aortic regurgitation. followed by [facility] - Pulmonary History Hx COPD: No Hx Asthma/Reactive Airway Disease: No Hx Recent Upper Respiratory Infection: No Hx Oxygen in Use at Home: No Hx Sleep Apnea: Yes Sleep Apnea Screening Result - Last Documented: Positive Pulmonary History Comment: currently not using o2. LUIS FERNANDO POSITIVE- doesn't use any devices. HX OF LUNG COLLAPSING with splenectomy surgery. HX OF THORACENTESIS - Neurologic History Hx Cerebrovascular Accident: Yes Hx Seizures: Yes Hx Dementia: No Neurologic History Comment: 1 SEIZURE D/T AMBIEN. VERTIGO USES WALKER MOST TIMES WHEN WALKING. stroke in 2017 - Endocrine History Hx Diabetes: No - Renal History Hx Renal Disorders: No Renal History Comment: hx of kidney stones years ago - Liver History Hx Hepatic Disorders: No - Neurological & Psychiatric Hx Hx Neurological and Psychiatric Disorders: No Neurological / Psychiatric History Comment: OCCASSIONAL DEPRESSION D/T ILLNESS - Cancer History Hx Cancer: Yes Cancer History Comment: BREAST CANCER BILATERALLY- double mastectomy. FALLOPIAN TUBE CANCER. skin ca - Congenital Disorder History Hx Congenital Disorders: No - GI History Hx Gastrointestinal Disorders: Yes Gastrointestinal History Comment: hx of HERNIA REPAIR. COLON TUMOR SHE REFUSED RESECTION. constipation issues - Other Health History Other Health History: hands itch quite a bit - Chronic Pain History Chronic Pain: Yes (back and both legs) - Surgical History Prior Surgeries: 5 TONSILECTOMY. 1958 APPENDECTOMY. 1965 SPINAL FUSION LUMBAR 4-5. [id number] NUMEROUS TUMORS WERE REMOVED FROM FEMALE ORGANS 6-7X. 1970 HYSTERECTOMY. 1974 BUNIONECTOMY RIGHT FOOT- SHE HAD POST OP BLOOD CLOT. 1975 INCISIONAL HERNIA REPAIR. 1985 BREAST BIOPSY. 1987 BREAST BIOPSY. 2004 SPLENECTOMY. 10/2005 PARTIAL LUNG COLLAPSE AFTER SURGERY. 06/2006 BREAST TUMORS REMOVED X2. 03/2009 BILATERAL MASTECTOMY. 11/2009 ROTATOR CUFF. 03/2012 SPINAL FUSION. 01/[address] BROWN. 02/2013 SPINAL FUSION. total of 35 surgeries ANE Review of Systems Review of Systems: - Exercise capacity METS (RN): 3 METS ANE Patient History - Allergies Allergies/Adverse Reactions: adhesive tape [Adhesive Tape] Allergy (Verified 10/26/18 15:51) RASH/BLISTERS amlodipine besylate [From Norvasc] Allergy (Verified 10/26/18 15:51) LOW HEART RATE latex [Latex] Allergy (Verified 10/26/18 15:51) SEVERE RASH Sulfa (Sulfonamide Antibiotics) Allergy (Verified 10/26/18 15:51) Vomiting zolpidem [From Ambien] Allergy (Verified 10/26/18 16:03) caused stroke - Home Medications Home medications: home medication list seen and reviewed Home Medications: Hydrochlorothiazide [HCTZ (*)] 11/17/16 [Last Taken 10/26/18] Lisinopril [Zestril 40 mg (*)] 10/26/18 [Last Taken 10/26/18] Percocet 5-325 mg Tablet 10/26/18 [Last Taken 10/26/18] - NPO status NPO Status: no food or drink >8 hours NPO Since - Liquids (Date): 10/26/18 NPO Since - Liquids (Time): 22:00 NPO Since - Solids (Date): 10/26/18 NPO Since - Solids (Time): 18:00 - Anes Hx Anes Hx: no prior problems - Smoking Hx Smoking Status: Never smoked - Family Anes Hx Family Hx Anesthesia Complications: none ANE Labs/Vital Signs - Labs Result Diagrams: 10/27/18 09:26 - Vital Signs Blood Pressure: 163/114 Heart Rate: 77 Respiratory Rate: 20 O2 Sat (%): 93 Height: 163.8 cm Weight: 81.3 kg ANE Physical Exam - Airway Neck exam: decreased ROM Mallampati Score: Class 3 Mouth exam: poor dentition - Pulmonary Pulmonary: no respiratory distress - Cardiovascular Cardiovascular: regular rate and rhythym - ASA Status ASA Status: III ANE Anesthesia Plan Anesthesia Plan: general endotracheal anesthesia
[2018-10-27] MEDS ORDERED: LIDOCAINE 2% 5 ML SDV ONE (10:57)
[2018-10-27] MEDS ORDERED: DEXAMETHASONE 4 MG/ML VIAL ONE (10:57)
[2018-10-27] MEDS ORDERED: ROCURONIUM 50 MG/5 ML VIAL ONE (10:57)
[2018-10-27] MEDS ORDERED: ONDANSETRON 4 MG/2 ML VIAL ONE (11:55)
[2018-10-27] MEDS ORDERED: KETOROLAC 30 MG/1 ML SDV ONE (11:55)
[2018-10-27] MEDS ORDERED: HYDROmorphONE/DILAUDID 2 MG/ML INJ IVP PRN (12:00)
[2018-10-27] MEDS ORDERED: PROMETHAZINE HCL 25 MG/ML INJ IVP PRN (12:00)
[2018-10-27] MEDS ORDERED: ONDANSETRON 4 MG/2 ML VIAL IVP PRN (12:00)
[2018-10-27] MEDS ORDERED: NALOXONE HCL 0.4 MG/ML INJ IVP PRN (12:00)
[2018-10-27] MEDS ORDERED: fentaNYL 100 MCG/2 ML INJ IVP PRN (12:00)
[2018-10-27 12:07] LABS: PLATELET COUNT 259 10^3/uL (150-400)
[2018-10-27] MEDS ORDERED: BISACODYL 10 MG SUPP PR PRN (12:15)
[2018-10-27] MEDS ORDERED: POLYETHYLENE GLYCOL 3350 17 GM PKT PO PRN (12:15)
[2018-10-27] MEDS ORDERED: oxyCODONE IR 5 MG TAB PO PRN (12:15)
[2018-10-27] MEDS ORDERED: MAGNESIUM HYDROXIDE 30 ML UDCUP PO PRN (12:15)
[2018-10-27] MEDS ORDERED: LACTULOSE 20 GM/30 ML UDCUP PO PRN (12:15)
--- NOTE | 2018-10-27 12:28 | POSTANESTH ---
Post Anesthetic Evaluation Cardiovascular Status: Similar to Pre-Op Cond Respiratory Status: Similar to Pre-op Cond. Level of Consciousness/Mental Status: Alert and Oriented, Mildly Sleepy, Arousable Pain Control: Adequate, Prn Tx Ordered Nausea/Vomiting Control: Adequate, Prn Tx Ordered Complications Possibly Related to Anesthesia: None Noted
[2018-10-27 14:34] VITALS: BP 125/71
--- NOTE | 2018-10-27 14:59 | SUROPNOTE ---
[facility] Operative Report - Surgery Date: 10/27/18 Pre-operative Diagnoses: Failed back syndrome, chronic lumbago and radiculopathy Post-operative Diagnosis: Same Procedures: T11 partial laminectomy Placement of spinal cord stimulator and battery Use of intra-operative fluoroscopy Use of intra-operative neuromonitoring, including EMG, MEP, and SSEP modalities Surgeons: Juan Miguel Cantu MD Assist: Brenda London Anesthesia: General endotracheal anesthesia Findings: As expected Estimated Blood Loss: 20mL Drains: None Specimens: None Complications: None Condition: Transferred to PACU in stable condition. Implants: Nevro Spinal Cord Stimulator and Battery Indications: This patient was seen in my office and diagnosed with chronic lumbago and radiculopathy. The patient has failed many conservative measures. I have explained all options of treatment for the patient, and the patient has elected to proceed with operative management. I have explained all risks, benefits, and alternatives of the proposed procedure. The risks that we have discussed include , blindness, nerve damage, infection, dural tear, failure of surgery to alleviate pre-operative symptoms, and possible need for further operation. In addition to the aforementioned procedure, I discussed with the patient that other procedures may be indicated during the course of surgery that would be considered in the patients best interest. The patient expressed understanding of this and agreed to move forward with operative management. Pre-operative: The proposed incision sites were marked in the pre-operative holding area by me. The patient was then taken to the operating room in stable condition. Following smooth induction of general anesthesia, the patient was positioned prone on a Nelson table with all down surfaces well-padded. The patient was then prepped and draped in the usual sterile fashion. Pre-operative antibiotics were administered within one hour of the incision. A surgical timeout was performed, and all parties involved in the procedure were in agreement on the correct patient, location, and procedure to be performed. Level identification: The proposed level for the laminotomy was identified using C-arm fluoroscopy and the skin was marked for the proposed incision. Following radiographic confirmation of proposed operative level, a 4cm longitudinal incision was made through both the skin and fascia in an expected trajectory. Electrocautery was used to coagulate any bleeding vessels identified above the level of the fascia. Dome laminectomy: A Leksell rongeur and high-speed barbra was used to perform a dome laminotomy of the inferior border of T11 to place the paddle. The paddle was then threaded cephalad under direct visualization. Radiographs were used to confirm proper paddle placement. Battery placement: An incision was made over the patients lower right flank, between the iliac crest and lowest floating rib. A pocket was created for the battery pack. Lead tunneling: Using a blunt trochar, a channel was created to communicate the two surgical sites. The leads were tunneled from the laminotomy site to the created battery pocket. Stimulator setup and confirmation: The stimulator leads were then cleaned and placed into the battery. The battery was then placed into the pocket. The impedance was checked remotely and noted to be good. All leads were in proper contact. Surgical microscope use: A surgical microscope was utilized throughout the laminotomy portion of this case. This was deemed necessary for safe and accurate surgical decompression of affected nerve roots. Fluoroscopy and final imaging: All instrumentation was then removed, and final radiographs were taken, confirming proper implant placement. Fluoroscopy was deemed necessary for safe stimulator placement throughout the case. Closure: The surgical field was then copiously irrigated with sterile saline. #1 braided and absorbable interrupted sutures were used to repair the fascia. Then 2-0 interrupted sutures were used to repair the dermal layer, and a separate 3-0 monofilament suture was used to repair the subcutaneous layer in a running fashion. All sutures used were absorbable. Topical adhesive was then applied to the skin and allowed to dry. A sterile island dressing was applied over the surgical incision. A surgical count was performed before initiation of closure and following the procedure, and all were correct. I was present for the entire procedure. Neuromonitoring: SSEP, MEP and EMG were used throughout the case from incision until the beginning of closure. There were no significant changes throughout the case, and SSEP signals were at their pre-surgical baseline levels before surgical closure was initiated. Bilateral EMG was noted to confirm uniform and bilateral coverage following placement of the stimulator paddle. assistant dean of students: A delinquent tax collector assistant was used throughout the case, and deemed necessary for safe neural retraction, hemostasis, and suction. Recovery: The patient was extubated uneventfully in the operating room. The patient was taken to the recovery room in stable condition. Sequential compression devices for VTE prophylaxis were applied to the patients lower extremities, and were ordered to be used while the patient was non-ambulatory. Chemical VTE prophylaxis was considered to be contraindicated for this patient because of the risk of bleeding near the epidural space. The patient will work with [employer] to power the device in 3 to 5 days after the operation. Juan Miguel Cantu MD
[2018-10-27] MEDS ORDERED: oxyCODONE IR 5 MG TAB ONE (15:32)
[2018-10-27] MEDS ORDERED: FAMOTIDINE 20 MG TAB PO SCH (21:00)
[2018-10-27] MEDS ORDERED: SENNOSIDES/DOCUSATE SODIUM TAB PO SCH (21:00)
== END 2018-10-27 16:38 | disposition home or self-care (01) ==
LOC: FSGY 09:12
PROVIDERS: ATTEND Orthopaedic Surgery Orthopaedic Surgery of the Spine
PROC: 4A10X4G Monitoring of Central Nervous Electrical Activity, Intraoperative, External Approach (ICD-10-PCS; principal; 2018-10-27 10:30)
PROC: B01B1ZZ Fluoroscopy of Spinal Cord using Low Osmolar Contrast (ICD-10-PCS; principal; 2018-10-27 10:30)
PROC: 00HV0MZ Insertion of Neurostimulator Lead into Spinal Cord, Open Approach (ICD-10-PCS; principal; 2018-10-27 10:30)
DX: M54.16 Radiculopathy, lumbar region (principal); I10 Essential (primary) hypertension; I25.10 Atherosclerotic heart disease of native coronary artery without angina pectoris; E78.5 Hyperlipidemia, unspecified; I48.91 Unspecified atrial fibrillation; I08.0 Rheumatic disorders of both mitral and aortic valves; Z98.1 Arthrodesis status; Z85.3 Personal history of malignant neoplasm of breast; Z91.81 History of falling; Z85.44 Personal history of malignant neoplasm of other female genital organs
CPT/HCPCS: C1778; C1822; J0690; J1100; J1885; J2250; J2405; J2704; J3010; J3370

== ENCOUNTER → 2019-01-20 | Outpatient (CLI) | payer OTHER | LOC: FIMAGING 09:53 | PROVIDERS: ATTEND Family Medicine | DX: R22.32 Localized swelling, mass and lump, left upper limb (principal); Z90.13 Acquired absence of bilateral breasts and nipples ==

== ENCOUNTER 2019-01-26 09:47 | Emergency (ER) | payer OTHER ==
--- NOTE | 2019-01-26 10:19 | EDPHY ---
H & P Time Seen by Provider: 01/26/19 09:49 HPI/ROS: This patient presents with a 2 day history of coughing-dry intermittent cough with associated low-grade fevers and coryza. She has no other significant associated symptoms no exacerbating factors. However, she has had significant respiratory infections the past or to be sure that she did have "something serious". She came in by private vehicle today and drove herself here. ROS: Constitutional: No high fevers or chills. No significant fatigue. HEENT: No sinus pain. No sore throat or ear pain Pulmonary: No pleuritic pain. No hemoptysis Cardiovascular: No lightheadedness. No chest pain GI: No abdominal pain, nausea or vomiting : No complaints Integumentary: No pallor diaphoresis or rash. 10 point review of symptoms is performed and otherwise negative with exception of pertinent positives and negatives listed in HPI and ROS Smoking Status: Never smoked Physical Exam: General Appearance: Pleasant 78-year-old female appears younger than her stated age. Alert, no distress. Eyes: Pupils equal and round no pallor or injection. ENT, Mouth: Mucous membranes moist. Respiratory: Clear to auscultation bilaterally with exception faint wheeze only when she coughs with forced exhalation. No rales or rhonchi appreciated. Cardiovascular: Regular rate and rhythm. No JVD. No peripheral edema. Gastrointestinal: Abdomen is soft and nontender, no masses, bowel sounds normal. Neurological: GCS 15. Skin: Warm and dry, no rashes. Musculoskeletal: Neck is supple nontender. Extremities are symmetrical, full range of motion. Psychiatric: Mood and affect are normal. DIFFERENTIAL DIAGNOSIS: After history and physical exam differential diagnosis was considered for influenza, viral URI with cough, acute bronchitis, doubt pneumonia given clinical presentation Constitutional: Initial Vital Signs Temperature (C) 37.0 C 01/26/19 09:55 Heart Rate 62 01/26/19 09:55 Respiratory Rate 16 01/26/19 09:55 Blood Pressure 161/83 H 01/26/19 09:55 O2 Sat (%) 92 01/26/19 09:55 O2 Delivery Mode Room Air Allergies/Adverse Reactions: adhesive tape [Adhesive Tape] Allergy (Verified 01/26/19 09:54) RASH/BLISTERS amlodipine besylate [From Norvasc] Allergy (Verified 01/26/19 09:54) LOW HEART RATE latex [Latex] Allergy (Verified 01/26/19 09:54) SEVERE RASH Sulfa (Sulfonamide Antibiotics) Allergy (Verified 01/26/19 09:54) Vomiting zolpidem [From Ambien] Allergy (Verified 01/26/19 09:54) caused stroke Home Medications: Medication Instructions Recorded Hydrochlorothiazide [HCTZ (*)] 11/17/16 Lisinopril [Zestril 40 mg (*)] 10/26/18 Percocet 5-325 mg Tablet 10/26/18 Albuterol Hfa Anes Only [Proair 2 puffs IH Q4 PRN #1 mdi 01/26/19 Hfa Icu (*)] Azithromycin [Zithromax] 250 mg PO DAILY #6 tab 01/26/19 Benzonatate [Tessalon Pearles (RX)] 100 - 200 mg PO TID PRN #20 cap 01/26/19 MDM/Departure - MDM Diagnostics: Rapid influenza is negative. ED Course/Re-evaluation: Discussion: Patient here with cough, minimal wheeze URI symptoms negative influenza. I counseled regarding bronchitis will treat with albuterol, Zithromax and Tessalon Perles. She understands need to return emergency department should she develop any significant worsening of her symptoms despite the treatment plan. - Depart Disposition: Home, Routine, Self-Care Clinical Impression: Acute bronchitis Qualifiers: Bronchitis organism: unspecified organism Qualified Code(s): J20.9 - Acute bronchitis, unspecified Condition: Good Instructions: Benzonatate (By mouth), Albuterol (By breathing), Azithromycin ( By mouth) Prescriptions: Albuterol Hfa Anes Only [Proair Hfa Icu (*)] 2 puffs IH Q4 PRN #1 mdi PRN Reason: Wheezing Azithromycin [Zithromax] 250 mg PO DAILY #6 tab Benzonatate [Tessalon Pearles (RX)] 100 - 200 mg PO TID PRN #20 cap PRN Reason: cough Referrals: Sofi Dominguez MD [Primary Care Provider] - As per Instructions
[2019-01-26 16:32] VITALS: BP 164/84
[2019-01-28 14:23] LABS: B.PARAPERTUSSIS PCR Negative; B.PERTUSSIS PCR Negative
== END 2019-01-26 11:40 | disposition home or self-care (01) ==
LOC: CED 09:47 → UNDOADMIN 10:47 → CEDHOLD 10:47
DX: J40 Bronchitis, not specified as acute or chronic (principal)
CPT/HCPCS: 87400-QW-ER; 87798-90; 99284-ER